=== PATIENT | female | born 2000 | race Caucasian/White ===

== ENCOUNTER 2021-01-18 13:09 | Outpatient (CLI) | payer OTHER, SELFPAY ==
--- NOTE | 2021-01-21 12:40 | WPDHOLTEREM ---
Holter/Event Monitor Holter/Event Monitor Date of procedure: 01/18/21 Holter/Event Procedure: 48 Hr Holter Monitor Indications: Tachycardia Conclusion: 1. 48 hour holter monitor on 01/18/21. 2. Underlying rhythm is sinus rhythm with sinus arrhythmia. HR range 61-197 bpm; average HR 106 bpm. 3. No premature supraventricular complexes. No supraventricular tachycardia. 4. No premature ventricular complexes. No ventricular tachycardia. 5. No sinoatrial or atrioventricular blocks. No significant pauses greater than 2 seconds. 6. Patient reports symptoms of chest pain, heart pounding, lightheadedness which demonstrate sinus rhythm, HR range 97-190 bpm.
== END 2021-01-18 13:10 | disposition home or self-care (01) ==
PROVIDERS: PCP Internal Medicine; Visit Provider Nurse Practitioner
DX: R00.0 Tachycardia, unspecified (principal)
CPT/HCPCS: 93225; 93226

== ENCOUNTER 2021-05-25 20:12 | Emergency (ER) | payer OTHER, SELFPAY ==
--- NOTE | ~2021-05-25 | XR_ITS ---
EXAMINATION: XR chest 2V 05/25/2021 20:55 INDICATION: Substernal chest pain PROCEDURE: 2 view chest COMPARISON: No prior studies for comparison. FINDINGS: The lungs are clear. The cardiomediastinal silhouette is within normal limits. There are no pleural effusions. There is no pneumothorax suspected. IMPRESSION: 1: NO ACUTE CARDIOPULMONARY DISEASE. Reviewed, dictated and finalized at location A.
--- NOTE | ~2021-05-25 | CT_ITS ---
EXAMINATION: CTA chest PE protocol DATE: 05/25/2021 23:57 INDICATION: Chest pain TECHNIQUE: Computed tomography angiography (CTA) of the chest was performed with 100 mL Omnipaque-350 intravenous contrast timed to evaluate the pulmonary arteries. Coronal maximum intensity projection 3D-reconstructions were created by the technologist. The dose-length product (DLP) was 859.62 mGy-cm. Automated exposure control and iterative reconstruction technique were employed. COMPARISON: None. FINDINGS: The pulmonary arteries are well-opacified. No pulmonary embolism is identified. There is a 1.5 x 1.3 cm nodule in the medial right lower lobe. There is right hilar lymphadenopathy. The lungs a re otherwise free of acute opacities. There is no pleural effusion or pneumothorax. The heart size is normal. IMPRESSION: 1. No pulmonary embolus. 2. Right lower lobe nodule with right hilar lymphadenopathy. Finding could be infectious or inflammat ory, or less likely malignancy. Follow-up CT in three months is recommended. Reviewed, dictated and finalized at location A. IMPRESSION: 1. No pulmonary embolus. 2. Right lower lobe nodule with right hilar lymphadenopathy. Finding could be i nfectious or inflammatory, or less likely malignancy. Follow-up CT in three mon ths is recommended.
--- NOTE | 2021-05-25 20:13 | ECG_ITS ---
Measurements Intervals [place] Rate: 107 P: 50 [place]: 165 QRS: 58 QRSD: 73 T: 28 QT: 305 QTc: 408 Interpretive Statements SINUS TACHYCARDIA POSSIBLE LEFT ATRIAL ENLARGEMENT BASELINE ARTIFACT- I, III, AVR, AVL ABNORMAL ECG Electronically Signed On 05-26-2021 5:33:30 CDT by Holden mSall D.O.
[2021-05-25 20:20] VITALS: BP 154/96; PULSE 110; RESP 18; TEMP 36.9; O2SAT 100
[2021-05-25 20:51] LABS: Basophils Percent Auto 0.5 % (0.2-1.2); Eosinophils Absolute Auto 0.1 K/mm3 (0-0.3); Eosinophils Percent Auto 1.5 % (0-4.4); Hematocrit 43.2 % (37.0-47.0); Hemoglobin 13.7 g/dL (12.0-15.0); Immature Granulocyte Absolute 0.03 K/mm3 (0.00-0.031); Immature Granulocyte Percent A 0.3 % (0-0.5); Lymphocytes Percent Auto 32.9 % (18.3-44.2); Mean Corpuscular HGB Conc 31.7 g/dl (32-36); Mean Corpuscular Hemoglobin 28.1 pg (26-34); Mean Corpuscular Volume 88.7 fl (80-100); Mean Platelet Volume 9.9 fl (7.4-10.4); Monocytes Absolute Auto 0.7 K/mm3 (0.1-0.6); Monocytes Percent Auto 7.8 % (2.6-8.5); Platelet Count Result 315 k/mm3 (150-375); Red Blood Count 4.87 M/mm3 (4.2-5.4); Red Cell Distribution Width 14.3 % (11.5-14.5); White Blood Count 8.8 K/mm3 (4.5-10.0)
[2021-05-25] MEDS: ASPIRIN 81 MG CHEWABLE TABLET 324 MG PO (21:00)
[2021-05-25 21:03] LABS: Anion Gap 9 mmol/L (8-16); Blood Urea Nitrogen 9 mg/dL (7-17); Calcium 9.6 mg/dL (8.4-10.2); Carbon Dioxide 27 mmol/L (22-30); Chloride 102 mmol/L (98-107); Estimated CRCL calculation 152 ml/min; Estimated Glomerular Filt Rate > 60; Glucose 93 mg/dL (65-110); Potassium 3.9 mmol/L (3.4-5.0); Sodium 138 mmol/L (137-145)
[2021-05-25 21:05] LABS: Prothrombin Time 12.6 Seconds (11.1-14.7)
[2021-05-25 21:06] LABS: Partial Thromboplastin Time 27.5 SECONDS (22.3-36.8)
[2021-05-25 21:13] LABS: Troponin I < 0.012 ng/mL (0.000-0.034)
--- NOTE | 2021-05-25 21:39 | ED.CHESTPAIN ---
HPI - Chest Pain General Chief Complaint: Chest Pain Stated Complaint: chest pain Time Seen by Provider: 05/25/21 20:55 Source: patient, RN notes reviewed and old records reviewed Mode of arrival: ambulatory Limitations: no limitations History of Present Illness HPI narrative: This is a 21 year old female who presents for evaluation of chest pain. She reports intermittent midsternal chest pain for 2 days. She reports random episodes of midsternal chest squeezing that last seconds. She is not aware of any definite exacerbating cause. She had lightheadedness with an episode of squeezing. Her last episode was approximately 40 minutes ago. She denies cough, shortness of breath, diaphoresis, nausea or vomiting. Her pain does not radiate. She is pain free currently. She was evaluated with Holter monitor for tachycardia. She denies taking any medication or supplements. Related Data Allergies Allergy/AdvReac Type Severity Reaction Status Date / Time No Known Allergies Allergy Mild Verified 05/10/21 08:43 Review of Systems Review of Systems: All systems reviewed & are unremarkable except as noted in HPI and below PMFSH Past Medical History Medical History (Updated 05/26/21 @ 00:45 by Milka Paulson MD) Acute otitis media Social History Social History (Updated 05/10/21 @ 08:40 by Kitty Paez CNA) Smoking status: Never smoker Second hand tobacco smoke exposure: Yes Alcohol intake: current Alcohol use details: every couple months - Social Substance use: never Substance use type: does not use Exam Const: General: no acute distress and alert Orientation/consciousness: patient oriented x3 Eyes: EOM: EOMs intact bilaterally Chest: Chest palpation & inspection: normal inspection of the chest Resp: Effort & Inspection: normal respiratory effort and no retractions Auscultation: clear to auscultation bilaterally Cardio: Rate: regular rate Rhythm: regular rhythm Heart sounds: no murmurs GI: GI Palp: Yes Soft to palpation, No Tenderness to palpation present (GI) and No Guarding due to palpation present (GI) Auscultation: normal bowel sounds Back/Spine/Pelvis: Back: no CVA tenderness Skin: General skin exam: normal color Rashes: no rashes Neuro: General: patient oriented x3, moves all extremities and CN's II-XI intact bilaterally Extrem: General: normal to inspection Psych: Mental Status: mental status grossly normal Affect: normal affect Course Reevaluation(s) Reevaluation #1: I discussed with patient labs and CT . I reviewed CT scan showing right lung nodule and lymph node that she will need follow up to rule out neoplasm. She states she understands. Date: 05/26/21 Time: 00:38 Vital Signs Vital signs: Vital Signs Temperature 98.4 F 05/25/21 20:20 Pulse Rate 110 H 05/25/21 20:20 Respiratory Rate 18 05/25/21 20:20 Blood Pressure 154/96 H 05/25/21 20:20 Pulse Oximetry 100 05/25/21 20:20 Temperature 98.4 F 05/25/21 20:20 Pulse Rate 99 05/26/21 00:53 Respiratory Rate 19 05/26/21 00:53 Blood Pressure 110/66 05/26/21 00:53 Pulse Oximetry 100 05/26/21 00:53 MDM - Chest Pain Lab Data Attestation: I reviewed the patient's lab results. Result diagrams: 05/25/21 20:34 05/25/21 20:34 Labs: Lab Results 05/25/21 05/25/21 05/25/21 Range/Units 20:34 20:34 20:34 WBC 8.8 (4.5-10.0) K/mm3 RBC 4.87 (4.2-5.4) M/mm3 Hgb 13.7 (12.0-15.0) g/dL Hct 43.2 (37.0-47.0) % MCV 88.7 (80-100) fl MCH 28.1 (26-34) pg MCHC 31.7 L (32-36) g/dl RDW 14.3 (11.5-14.5) % Plt Count 315 (150-375) k/mm3 MPV 9.9 (7.4-10.4) fl Immature Gran % (Auto) 0.3 (0-0.5) % Neut % (Auto) 57.0 (45.5-73.1) % Lymph % (Auto) 32.9 (18.3-44.2) % Ste[place] % (Auto) 7.8 (2.6-8.5) % Eos % (Auto) 1.5 (0-4.4) % Baso % (Auto) 0.5 (0.2-1.2) % Lymph # (Auto) 2.90 (0.9-3.2) K/mm3 Mo
[2021-05-25 22:36] LABS: D Dimer 0.86 ug/mL (<0.48)
[2021-05-25 22:48] LABS: Magnesium 1.9 mg/dL (1.6-2.3)
[2021-05-25 23:32] VITALS: PULSE 94
[2021-05-25 23:34] VITALS: BP 126/77; PULSE 96; RESP 16; O2SAT 100
[2021-05-26 00:01] LABS: Troponin I < 0.012 ng/mL (0.000-0.034)
[2021-05-26 00:16] VITALS: BP 118/64; PULSE 98; RESP 21; O2SAT 100
[2021-05-26 00:53] VITALS: BP 110/66; PULSE 99; RESP 19; O2SAT 100
== END 2021-05-26 00:54 | disposition home or self-care (01) ==
PROVIDERS: Emergency Medicine; Emergency Provider General Practice; PCP Internal Medicine
DX: R91.1 Solitary pulmonary nodule (principal); R07.89 Other chest pain
CPT/HCPCS: 36415; 71046; 71275; 80048; 81025; 83735; 84443; 84484; 85025; 85380; 85610; 85730; 93005; 99284; A9270; Q9967

== ENCOUNTER 2021-06-15 14:59 | Outpatient (CLI) | payer OTHER, SELFPAY ==
--- NOTE | ~2021-06-15 | CT_ITS ---
EXAMINATION: CT diagnostic chest w con DATE: 06/15/2021 16:10 INDICATION: R91.1 - Solitary pulmonary nodule TECHNIQUE: Computed tomography (CT) of the chest was performed with 75 mL Omnipaque-350 intravenous c ontrast. Additional 3D reconstructions utilizing coronal maximum intensity projection (MIP) were perf ormed. Automated exposure control and iterative reconstruction technique were employed. The dose-jacob th product was 381.25 mGy-cm. COMPARISON: Chest CT dated 05/25/2021 FINDINGS: Slight decrease in size of a previously 1.4 x 1.3 x 1.3 cm nodule at the azygos esophageal recess of the right lower lobe which currently measures 1.3 x 1.1 x 1.2 cm. No other pulmonary nodules, pneumon ia, pulmonary edema or pleural effusion. Heart size is normal. No pericardial effusion. Thoracic aort a is normal in caliber with no dissection. No pathologically enlarged thoracic lymphadenopathy. Visua lized upper abdomen and bones are unremarkable. IMPRESSION: 1. Slight decrease in size of a now 1.3 x 1.1 x 1.2 cm right lower lobe nodule which along with patie nt age suggests an infectious/inflammatory etiology. Reviewed, dictated and finalized at location A. UCTION SUPERINTENDENT IMPRESSION: 1. Slight decrease in size of a now 1.3 x 1.1 x 1.2 cm right lower lobe nodule which along with patient age suggests an infectious/inflammatory etiology.
--- NOTE | ~2021-06-15 | US_ITS ---
EXAMINATION: US carotid duplex BI EXAM DATE: 06/15/2021 16:12 INDICATION: R09.89 - Other specified symptoms and signs involving the... right carotid bruit TECHNIQUE: Grayscale, color and pulsed Doppler images of the cervical carotid arteries were obtained . The degree of vessel stenosis is placed in one of the following categories: normal, <50% stenosis, 50-69% stenosis, >=70% stenosis but less than near-occlusion, near-occlusion, or occlusion. Note that percent stenosis relative to normal distal artery lumen diameter is indirectly measured from velocit y measurements as described by Tyson, et al. Radiology 2003; 229:340-346. There is no prior study fo r comparison. FINDINGS: Incidental note made of left thyroid lobe category TR 4 nodule measuring 2.6 x 1.7 x 1.4 cm . RIGHT SIDE: Right common carotid artery peak systolic velocity (PSV in cm/s): 170 Right bulb/internal carotid artery peak systolic velocity (PSV in cm/s): 108 Right internal carotid artery end diastolic velocity (EDV in cm/s): 42 Right ICA/CCA peak systolic ratio: 0.63 Right external carotid artery peak systolic velocity (PSV in cm/s): 120 Right vertebral artery antegrade flow: yes No focal plaque or stenosis. LEFT SIDE: Left common carotid artery peak systolic velocity (PSV in cm/s): 160 Left bulb/internal carotid artery peak systolic velocity (PSV in cm/s): 141 Left internal carotid artery end diastolic velocity (EDV in cm/s): 56 Left ICA/CCA peak systolic ratio: 0.88 Left external carotid artery peak systolic velocity (PSV in cm/s): 87.5 Left vertebral artery antegrade flow: yes No focal plaque or stenosis. IMPRESSION: 1. Normal right internal carotid artery. 2. Normal left internal carotid artery. 3. Incidental left thyroid lobe nodule, size indicates considering ultrasound-guided FNA. Reviewed, dictated and finalized at location B. LOPE ADDRESSER IMPRESSION: 1. Normal right internal carotid artery. 2. Normal left internal carotid artery. 3. Incidental left thyroid lobe nodule, size indicates considering ultrasound- guided FNA.
== END 2021-06-15 15:00 | disposition home or self-care (01) ==
PROVIDERS: PCP Internal Medicine; Visit Provider Nurse Practitioner
DX: R91.1 Solitary pulmonary nodule (principal); R09.89 Other specified symptoms and signs involving the circulatory and respiratory systems
CPT/HCPCS: 71260; 93880; Q9967

== ENCOUNTER 2021-09-22 09:23 | Outpatient (CLI) | payer OTHER, SELFPAY ==
--- NOTE | ~2021-09-22 | US_ITS ---
EXAMINATION: US FNA w image guidance DATE: 09/22/2021 10:35 INDICATION: Nontoxic single thyroid nodule TECHNIQUE: A time-out was performed to verify the patient's name, date of , and procedure to be performed . The procedure and its benefits and risks were discussed with the patient. Risks specifically discus sed included bleeding and infection. The patient understood the risks and agreed to proceed. The neck was prepped and draped in the usual sterile manner. 3 mL 1% lidocaine was used for local anesthesia . 6 passes were made with a 25G needle into the lesion. Appropriate needle location was documented with continuous sonographic guidance. The specimens were passed to the cytology technologist in the room. A sterile bandage was applied. There were no immediate complications. FINDINGS: Grayscale ultrasound images demonstrate biopsy needles advanced into a 2.5 cm solid hypoechoic TI RAD S 4 left thyroid nodule. IMPRESSION: 1. Successful ultrasound-guided fine needle aspiration of a 2.5 cm left thyroid nodule of concern. Reviewed, dictated and finalized at location A. ING PIPE REPAIRER IMPRESSION: 1. Successful ultrasound-guided fine needle aspiration of a 2.5 cm left thyroi d nodule of concern.
== END 2021-09-22 09:24 | disposition home or self-care (01) ==
LOC: ANHIMG 09:29
PROVIDERS: PCP Internal Medicine; Visit Provider Nurse Practitioner
DX: E04.1 Nontoxic single thyroid nodule (principal)
CPT/HCPCS: 10005; 88173; 88305; 88312

== ENCOUNTER 2021-10-18 10:09 | Outpatient (CLI) | payer OTHER, SELFPAY ==
--- NOTE | ~2021-10-18 | CT_ITS ---
EXAMINATION: CT diagnostic chest w con DATE: 10/18/2021 10:41 INDICATION: Follow-up pulmonary nodule TECHNIQUE: Computed tomography (CT) of the chest was performed with 75 cc Omnipaque 350 intravenous c ontrast. The dose-length product was 467.82 mGy-cm. Automated exposure control and iterative reconstruction technique were employed. COMPARISON: CT dated 06/15/2021 FINDINGS: Interval decreased size of right lower lobe nodule measuring 8 x 8 mm compared with 11 x 11 mm on prior examination, consistent with benign infectious/inflammatory nodule. Heart size normal. N o significant pleural or pericardial effusion. There is residual thymic tissue. The upper abdomen is unremarkable. No thoracic lymphadenopathy. No focal airspace consolidation. No pneumothorax. No endob ronchial lesions. IMPRESSION: 1. Decreasing size of 8 mm right lower lobe nodule, consistent with benign infectious/inflammatory et iology. Reviewed, dictated and finalized at location A. IMPRESSION: 1. Decreasing size of 8 mm right lower lobe nodule, consistent with benign infe ctious/inflammatory etiology.
== END 2021-10-18 10:10 | disposition home or self-care (01) ==
PROVIDERS: PCP Internal Medicine; Visit Provider Nurse Practitioner
DX: R91.1 Solitary pulmonary nodule (principal)
CPT/HCPCS: 71260; Q9967